=== PATIENT | female | born 1995 | race Caucasian/White ===

== ENCOUNTER 2018-08-04 03:38 | Emergency (ER) | payer BC ==
[~2018-08-04] VITALS: Ht 162.6 cm; Wt 61.2 kg
[2018-08-04 03:53] VITALS: BP 123/82
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
[2018-08-04] MEDS ORDERED: NEOMY/BACITR/POLYMYXIN OINT PACKET. TP ONE (05:00)
[2018-08-04] MEDS ORDERED: IBUPROFEN 200 MG TABLET. PO ONE (05:00)
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
[2018-08-04] MEDS ORDERED: AMOX1TAB61 PO (05:27)
[2018-08-04] MEDS ORDERED: OXYC5TAB2 PO (05:33)
[2018-08-04] MEDS ORDERED: AMOXICILLIN/K CLAV 875/125MG TABLET. PO ONE (06:00)
== END 2018-08-04 05:45 | disposition home or self-care (01) ==
LOC: ER 03:38
DX: S02.2XXA Fracture of nasal bones, initial encounter for closed fracture (principal); R04.0 Epistaxis; R51 Headache; F32.9 Major depressive disorder, single episode, unspecified; Z88.6 Allergy status to analgesic agent; X93.XXXA Assault by handgun discharge, initial encounter; Y93.89 Activity, other specified; Y92.89 Other specified places as the place of occurrence of the external cause; Y99.8 Other external cause status
CPT/HCPCS: 70450; 70486; 81025; 99284

== ENCOUNTER 2019-02-03 02:34 | Emergency (ER) | payer BC ==
[~2019-02-03] VITALS: Ht 160 cm; Wt 49.9 kg
[~2019-02-03 02:34] MED LIST: AMOX1TAB61 PO; OXYC5TAB2 PO
[2019-02-03 02:37] VITALS: BP 123/81
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
--- NOTE | 2019-02-03 03:39 | RAD ---
Left humerus 2 views. HISTORY: Fall, swelling to left humerus 2 views were taken of the left humerus. There is no fracture or osseous abnormality. There is mild widening of the AC joint which could be a normal variation or a mild separation. IMPRESSION: 1. No fracture noted in the left humerus. 2. Possible mild AC separation. Electronically signed by: Justino Boyd MD (02/03/2019 3:36 AM) [facility]
== END 2019-02-03 03:38 | disposition home or self-care (01) ==
LOC: ER 02:34
DX: S40.022A Contusion of left upper arm, initial encounter (principal); Z88.6 Allergy status to analgesic agent; W18.09XA Striking against other object with subsequent fall, initial encounter; Y93.89 Activity, other specified; Y92.89 Other specified places as the place of occurrence of the external cause; Y99.8 Other external cause status
CPT/HCPCS: 73060; 99284